=== PATIENT | female | born 1970 | race Caucasian/White ===

== ENCOUNTER 2019-02-02 06:21 | Emergency (ER) | payer OTHER, SELFPAY ==
[2019-02-02 06:25] VITALS: BP 173/102; PULSE 83; RESP 18; TEMP 36.6; O2SAT 100
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
[2019-02-02 07:33] VITALS: BP 161/73; PULSE 84; RESP 18; O2SAT 99
[2019-02-02] MEDS: HYDROMORPHONE 1 MG INJ IM (08:06)
[2019-02-02] MEDS: ONDANSETRON 4 MG ODT SL (08:06)
[2019-02-02 08:47] VITALS: BP 165/87; PULSE 75; RESP 18; O2SAT 97
[2019-02-02] MEDS: diazePAM 5 MG TABLET PO (08:58)
[2019-02-02] MEDS: KETOROLAC 60 MG/2 ML VIAL 30 MG IM (08:58)
[2019-02-02 09:45] VITALS: BP 151/97; PULSE 76; RESP 16; O2SAT 99
== END 2019-02-02 10:01 | disposition home or self-care (01) ==
PROVIDERS: Emergency Provider Emergency Medicine; PCP Family Medicine
DX: S16.1XXA Strain of muscle, fascia and tendon at neck level, initial encounter (principal); V43.53XA Car driver injured in collision with pick-up truck in traffic accident, initial encounter
CPT/HCPCS: 72125; 96372; 99283; 99284; J1170; J1885

== ENCOUNTER → 2022-06-28 08:27 | Outpatient (CLI) | payer OTHER, SELFPAY ==
--- NOTE | 2022-06-28 | DI.CT.S_ITS ---
PROCEDURE: CT LUMBAR SPINE WO CON INDICATIONS: Spinal stenosis, lumbar region with neurogenic claudication TECHNIQUE: Noncontrast 3 mm thick sections acquired from the T12 level to the sacrum. Sagittal and coronal reformats were constructed. For radiation dose reduction, the following was used: automated exposure control. COMPARISON: [facility], CT, CT LUMBAR SPINE WO CON, 06/16/2015, 14:09. [facility], CR, XR LUMBAR SPINE 2 OR 3 VIEWS, 03/12/2022, 16:22. FINDINGS: Image quality: Excellent. Bones: There is no visualized fracture or dislocation. No suspicious osseous lesions. Trace retrolisthesis is present at L3 on L4, L4 on L5 and L5 on S1. Minimal disc bulges are present at L2-3, L3-4, L4-5. There is no gross spinal stenosis. unchanged. Minimal to mild left and minimal right foraminal narrowing L3-4, progressive, [id number] left and mild right foraminal narrowing is present at L4-5, unchanged, [id number] bilateral foraminal narrowing, L5-S1, left greater than right, minimally progressive. Mild facet and ligamentum flavum hypertrophy are present. Soft tissues: No retroperitoneal masses or hematomas. Visualized aorta is normal in caliber. IMPRESSION: Multilevel degenerative changes remaining most prominent L5-S1 as described above. Dictated by: Elena Stafford M.D. on 06/28/2022 at 9:59 Approved by: Elena Stafford M.D. on 06/28/2022 at 10:45
== END ==
PROVIDERS: PCP Nurse Practitioner; Referring Provider Orthopaedic Surgery Orthopaedic Surgery of the Spine; Visit Provider Orthopaedic Surgery Orthopaedic Surgery of the Spine
DX: M48.062 Spinal stenosis, lumbar region with neurogenic claudication (principal); M47.817 Spondylosis without myelopathy or radiculopathy, lumbosacral region
CPT/HCPCS: 72131

== ENCOUNTER 2024-04-25 18:52 | Emergency (ER) | payer OTHER, SELFPAY ==
[2024-04-25] VITALS (15 sets, daily range): BP systolic 115–227; BP diastolic 58–119; PULSE 92–125; RESP 12–26; TEMP 36.5; O2SAT 95–100; BMI 33.6
--- NOTE | 2024-04-25 19:07 | DI.RAD.S_ITS ---
PROCEDURE: XR CHEST 1V INDICATIONS: Chest pain TECHNIQUE: One view of the chest was acquired. COMPARISON: None. FINDINGS: Surgical changes and devices: None. Lungs and pleura: Lungs are clear. No pleural effusions or pneumothorax. Mediastinum: Mediastinal contours appear normal. Heart size is normal. Bones and chest wall: No suspicious bony lesions. Overlying soft tissues appear unremarkable. IMPRESSION: No acute cardiopulmonary abnormality is seen. Approved by: Sandra Calhoun M.D.,Ph.D. on 04/25/2024 at 20:32
--- NOTE | 2024-04-25 19:17 | EKG_ITS ---
[facility] [id number] [place] [id number] Test Date: 2024-04-25 Pat Name: Lillian Lew Department: Room: Gender: Female [employer]: RHYS : 1970 Requested By: Order Number: [id number] Reading MD: Measurements Intervals [place] Rate: 117 P: 51 FL: 152 QRS: 36 QRSD: 84 T: 40 QT: 340 QTc: 474 Interpretive Statements Sinus tachycardia Nonspecific ST and T wave abnormality Electronically Signed On 04-26-2024 8:06:03 PST by Manny Vergara MD
[2024-04-25] MEDS: LORazepam 2 MG/ML INJ 1 MG IV (19:18)
[2024-04-25 19:26] LABS: Add Manual Diff / Slide Review NO; Basophils Absolute Auto 0 /uL (0-100); Basophils Percent Auto 0.2 % (0-2); Eosinophils Absolute Auto 0 /uL (0-450); Eosinophils Percent Auto 0.3 % (2-4); Hematocrit 45.1 % (36-46); Hemoglobin 15.2 g/dL (12.0-16.0); Lymphocytes Absolute Auto 1300 /uL (1100-4500); Mean Corpuscular HGB Conc 33.8 % (30-36); Mean Corpuscular Hemoglobin 31.8 PG (26-34); Mean Corpuscular Volume 94.1 fL (80-100); Monocytes Absolute Auto 300 /uL (0-900); Monocytes Percent Auto 1.8 % (3-14); Neutrophils Absolute Auto 14500 /uL (1500-7000); Neutrophils Percent Auto 89.7 % (50-75); Platelet Count 469 X10^3/uL (150-400); Red Blood Cell Count 4.79 X10^6/uL (4.0-5.2); Red Cell Distribution Width 13.2 % (11.6-14.8); White Blood Cell Count 16.2 X10^3/uL (4.5-11.0)
[2024-04-25 19:40] LABS: Alanine Aminotransferase 30 IU/L (<35); Albumin 4.9 g/dL (3.5-5.0); Albumin Globulin Ratio 1.3 (1.0-2.8); Alkaline Phosphatase 92 U/L (38-126); Aspartate Aminotransferase 31 IU/L (14-36); Bilirubin Total 0.8 mg/dL (0.2-1.3); Blood Urea Nitrogen 7 mg/dL (7-17); Calcium 9.8 mg/dL (8.4-10.2); Carbon Dioxide 20 mmol/L (22-32); Chloride 99 mmol/L (98-107); Creatine Kinase 42 U/L (30-135); Estimated Glomerular Filt Rate > 60 mL/min (>60); Globulin 3.9 g/dL (1.7-4.1); Glucose 169 mg/dL (70-100); HEMOLYSIS 48 (0-50); Lipase 56 U/L (23-300); Sodium 133 mmol/L (137-145); Total Protein 8.8 g/dL (6.3-8.2)
[2024-04-25 19:52] LABS: Troponin I < 0.012 ng/mL (0.01-0.034)
[2024-04-25] MEDS: HYDROMORPHONE 1 MG INJ IV (19:55)
--- NOTE | 2024-04-25 20:46 | ED_ITS ---
HPI - General Adult General Chief complaint: Abdominal Pain Stated complaint: chest pain, back pain, poss food poisoning Time Seen by Provider: 04/25/24 19:06 Source: patient Mode of arrival: Ambulatory History of Present Illness HPI narrative: Patient is a 54-year-old female who is here for evaluation of chest pain, back pain, epigastric abdominal pain. She states that the symptoms started after eating lunch this afternoon it have progressively worsened since then. She does have history of reflux disease. Is on omeprazole. No recent travel. No recent antibiotics. No diarrhea. No urinary symptoms. No fevers. No shortness of breath. Related Data Home Medications Medication Instructions Recorded Confirmed buspirone 5 mg tablet mg PO 04/25/24 metoprolol succinate 25 mg capsule mg PO DAILY 04/25/24 sprinkle, ext. release 24 hr omeprazole 40 mg capsule,delayed mg PO DAILY 04/25/24 release Allergies Allergy/AdvReac Type Severity Reaction Status Date / Time No Known Drug Allergies Allergy Verified 04/25/24 19:14 Review of Systems Review of Systems ROS Unobtainable: All systems reviewed & are unremarkable except as noted in HPI and below Patient History Social History Smoking Status: Former smoker Smoking Status: Former smoker alcohol intake frequency: other Substance Use Type: does not use Exam Initial Vital Signs Initial Vital Signs: Vital Signs Temperature 97.7 F 04/25/24 19:11 Pulse Rate 116 H 04/25/24 19:11 Respiratory Rate 26 H 04/25/24 19:11 Blood Pressure 227/102 H 04/25/24 19:11 Pulse Oximetry 98 04/25/24 19:11 Oxygen Delivery Method Room Air 04/25/24 19:11 Const General: cooperative and No ill appearing [facility] Head: normal to inspection and normocephalic Resp Effort & Inspection: normal respiratory effort Auscultation: clear to auscultation bilaterally Cardio Rate: regular rate Rhythm: regular rhythm GI Inspection: normal to inspection and non-distended Palpation: soft and tender (Epigastric) Skin General: no rashes or lesions noted Neuro General: patient alert, patient awake and moves all extremities Extrem General: capillary refill normal Course Orders Ordered: ED Orders 04/25/24 19:07 XR chest 1V Stat EKG-12 Lead Stat 04/25/24 19:11 Complete Blood Count AUTO DIFF Stat Comprehensive Metabolic Panel Stat Lipase Stat Troponin & CK Cardiac Panel Stat 04/25/24 20:46 CT abdomen pelvis w con Stat Discontinued Medications Al Hydrox/Mg Hydrox/Simethicone 20 ml/ Lidocaine HCl 15 ml 0 ml PO NOW ONE Stop: 04/25/24 20:47 Last Admin: 04/25/24 21:03 Dose: 45 ml Documented By: LUDIVINA Hydromorphone HCl (Hydromorphone 1 Mg Inj) 1 mg IV NOW ONE Stop: 04/25/24 19:49 Last Admin: 04/25/24 19:55 Dose: 1 mg Documented By: WHITNEY Lorazepam (Lorazepam 2 Mg/Ml Inj) 1 mg IV NOW ONE Stop: 04/25/24 19:08 Last Admin: 04/25/24 19:18 Dose: 1 mg Documented By: LUDIVINA Ondansetron HCl (Ondansetron 4 Mg Odt Prepack) 1 bottle MISC DIRECTED ONE Stop: 04/25/24 22:02 Last Admin: 04/25/24 22:12 Dose: 1 bottle Documented By: LUDIVINA Pantoprazole Sodium (Pantoprazole 40 Mg Vial) 40 mg IV NOW ONE Stop: 04/25/24 20:47 Last Admin: 04/25/24 21:03 Dose: 40 mg Documented By: LUDIVINA Vital Signs Vital signs: Vital Signs - 8 hr 04/25/24 19:11 04/25/24 19:12 04/25/24 19:30 Temperature 97.7 F Pulse Rate 116 H 119 H 112 H Respiratory Rate 26 H Blood Pressure 227/102 H Pulse Oximetry 98 100 99 Oxygen Delivery Method Room Air 04/25/24 19:30 04/25/24 19:45 04/25/24 19:45 Temperature Pulse Rate 115 H Respiratory Rate 26 H Blood Pressure 208/88 H 207/119 H Pulse Oximetry 100 Oxygen Delivery Method 04/25/24 19:57 04/25/24 19:57 04/25/24 19:58 Temperature Pulse Rate 125 H 120 H Respiratory Rate 26 H 19 Blood Pressure 179/111 H Pulse Oximetry 100 98 Oxygen Delivery Method 04/25/24 19:58 04/25/24 20:00 04/25/24 20:00 Temperature Pulse Rate 113 H Respiratory Rate 24 Blood Pressure 183/87 H 181/85 H Pulse Oximetry Oxygen Delivery Method 04/25/24 20:05 04/25/24 20:05 04/25/24 20:30 Temperature Pulse Rate 103 H Respiratory Rate 16 Blood Pressure 148/68 H 117/58 L Pulse Oximetry 96 Oxygen Delivery Method 04/25/24 20:30 04/25/24 20:37 04/25/24 20:37 Temperature Pulse Rate 94 H 97 H Respiratory Rate 12 17 Blood Pressure 118/58 L Pulse Oximetry 98 96 Oxygen Delivery Method 04/25/24 21:04 04/25/24 21:08 04/25/24 21:08 Temperature Pulse Rate 103 H 101 H Respiratory Rate 18 13 Blood Pressure 128/63 Pulse Oximetry 97 98 Oxygen Delivery Method 04/25/24 21:30 04/25/24 21:30 04/25/24 21:53 Temperature Pulse Rate 92 H Respiratory Rate 13 Blood Pressure 115/62 128/70 Pulse Oximetry 95 Oxygen Delivery Method 04/25/24 21:53 04/25/24 22:00 04/25/24 22:00 Temperature Pulse Rate 105 H 97 H Respiratory Rate 21 12 Blood Pressure 124/69 Pulse Oximetry 95 95 Oxygen Delivery Method Room Air Medical Decision Making Lab Data Lab results reviewed: Yes I reviewed the patient's lab results. 04/25/24 19:11 04/25/24 19:11 Labs: Lab Results 04/25/24 Range/Units 19:11 WBC 16.2 H (4.5-11.0) X10^3/uL RBC 4.79 (4.0-5.2) X10^6/uL Hgb 15.2 (12.0-16.0) g/dL Hct 45.1 (36-46) % MCV 94.1 (80-100) fL MCH 31.8 (26-34) PG MCHC 33.8 (30-36) % RDW 13.2 (11.6-14.8) % Plt Count 469 H (150-400) X10^3/uL Neut % (Auto) 89.7 H (50-75) % Lymph % (Auto) 8.0 L (25-40) % [place] % (Auto) 1.8 L (3-14) % Eos % (Auto) 0.3 L (2-4) % Baso % (Auto) 0.2 (0-2) % Neut # (Auto) 55276 H (0344-6360) /uL Lymph # (Auto) 1300 (2719-3694) /uL [place] # (Auto) 300 (0-900) /uL Eos # (Auto) 0 (0-450) /uL Baso # (Auto) 0 (0-100) /uL Sodium 133 L (137-145) mmol/L Potassium 4.0 (3.4-5.1) mmol/L Chloride 99 (98-107) mmol/L Carbon Dioxide 20 L (22-32) mmol/L BUN 7 (7-17) mg/dL Creatinine 0.54 (0.52-1.04) mg/dL Estimated GFR > 60 (>60) mL/min BUN/Creatinine Ratio 13.0 (6-22) Glucose 169 H (70-100) mg/dL Calcium 9.8 (8.4-10.2) mg/dL Total Bilirubin 0.8 (0.2-1.3) mg/dL AST 31 (14-36) IU/L ALT 30 (<35) IU/L Alkaline Phosphatase 92 (38-126) U/L Total Creatine Kinase 42 (30-135) U/L Troponin I < 0.012 (0.01-0.034) ng/mL Total Protein 8.8 H (6.3-8.2) g/dL Albumin 4.9 (3.5-5.0) g/dL Globulin 3.9 (1.7-4.1) g/dL Albumin/Globulin Ratio 1.3 (1.0-2.8) Lipase 56 (23-300) U/L Urine Dip Bedside Urine Glucose Negative Bedside Urine Bilirubin - Negative Bedside Urine Ketone +++ 80 Urine Specific [place] 1.010 Bedside Urine Occult Blood +/- Bedside Urine pH 8.0 Bedside Urine Protein - Negative Bedside Urine Urobilinogen - Negative Bedside Urine Nitrite - Negative Bedside Urine Leukocytes - Negative Esterase Point of care testing: Urine Dip Bedside Urine Glucose Negative Bedside Urine Bilirubin - Negative Bedside Urine Ketone +++ 80 Urine Specific [place] 1.010 Bedside Urine Occult Blood +/- Bedside Urine pH 8.0 Bedside Urine Protein - Negative Bedside Urine Urobilinogen - Negative Bedside Urine Nitrite - Negative Bedside Urine Leukocytes - Negative Esterase Imaging Data Chest x-ray: Radiologist's Impression: PROCEDURE: XR CHEST 1V INDICATIONS: Chest pain TECHNIQUE: One view of the chest was acquired. COMPARISON: None. FINDINGS: Surgical changes and devices: None. Lungs and pleura: Lungs are clear. No pleural effusions or pneumothorax. Mediastinum: Mediastinal contours appear normal. Heart size is normal. Bones and chest wall: No suspicious bony lesions. Overlying soft tissues appear unremarkable. IMPRESSION: No acute cardiopulmonary abnormality is seen. CT scan - abdomen/pelvis: Radiologist's Impression: PROCEDURE: CT ABDOMEN PELVIS W CON INDICATIONS: Upper abdominal pain with vomiting TECHNIQUE: After the administration of intravenous contrast, axial sections acquired from the lung bases to the pubic symphysis. Coronal and sagittal reformats were performed. For radiation dose reduction, the following was used: automated exposure control, adjustment of mA and/or kV according to patient size. COMPARISON: None. FINDINGS: Image quality: Diagnostic Lower chest: Basal atelectasis. Small hiatal hernia. Normal heart size Liver: Unremarkable Gallbladder and biliary system: Unremarkable, nondilated Pancreas: No ductal dilation Spleen: Nonenlarged Adrenals: No discrete nodules Kidneys: No solid mass. No hydronephrosis Vessels and lymph nodes: The main portal vein is patent. No abdominal aortic aneurysm or pathologic lymph nodes by size criteria. Bowel and peritoneum: No evidence of small bowel obstruction. No pathologic ascites. Body wall: Tiny fat containing umbilical hernia Pelvis: Bladder is unremarkable. Suspected uterine fibroids. Adnexal structures are unremarkable. Reproductive organs could be better evaluated ultrasound if there is clinical concern. Bones: There are degenerative changes, no acute or suspicious osseous finding. IMPRESSION: Mildly thickened distal esophageal wall with small hiatal hernia, probably esophagitis. Endoscopy could better evaluate if necessary. No small bowel obstruction. Other findings as above. ECG Data Attestation: I personally reviewed and interpreted this ECG as follows: Interpretation: Sinus tachycardia Ventricular rate of 113 has a normal axis Normal QRS Normal QTC No ST T wave changes MDM Narrative Medical decision making narrative: After medications here in the emergency department her symptoms seemed to almost completely resolved. CT scan shows thickening of the distal esophagus. The patient has a history of reflux disease. Her symptoms did start after eating lunch today in her symptoms did seem to improve after treatment for GI sources here in the ER. I have low suspicion for ACS. Low suspicion this is a gallbladder issue. No signs of bowel obstruction. No indication for antibiotics despite her leukocytosis which I suspect is because of stress reaction from the vomiting. Will discharge home with nausea medication. Recommended that in addition to proton pump inhibitor that she take a liquid antacid to coat the stomach over the next couple days. She was given return precautions and follow-up instructions. She expressed understanding and agreement with plan. Discharge Plan Departure Patient Disposition: Home Clinical Impression: Abdominal pain Instructions: DI for Abdominal Pain-Adult Activity Restrictions/Additional Instructions: I do recommend that you continue to take all of your medications as directed and for the next couple days you add a liquid antacid such as Maalox to your medication regimen prior to meals. Recommend a bland diet for the next couple days. Return to the emergency department for new symptoms Prescriptions: No Action buspirone 5 mg Tablet PO omeprazole 40 mg Capsule,Delayed Release(Dr/Ec) PO DAILY metoprolol succinate 25 mg Capsule,Sprinkle,Er 24hr PO DAILY Referrals: *Temp,ED* [Primary Care Provider] - Stand Alone Forms: Patient Portal/API/Survey
[2024-04-25] MEDS: MAG HYDROX/ALUMINUM/SIMETH SUS 20 ML, LIDOCAINE VISCOUS 2% 15 ML PO (21:03)
[2024-04-25] MEDS: PANTOPRAZOLE 40 MG VIAL IV (21:03)
[2024-04-25] MEDS: ONDANSETRON 4 MG ODT PREPACK 1 BOTTLE MISC (22:12)
== END 2024-04-25 22:18 | disposition home or self-care (01) ==
PROVIDERS: Emergency Provider Emergency Medicine
DX: R10.9 Unspecified abdominal pain (principal); R07.9 Chest pain, unspecified; R00.0 Tachycardia, unspecified; R11.2 Nausea with vomiting, unspecified
CPT/HCPCS: 36415; 71045; 74177; 80053; 81003; 82550; 83690; 84484; 85025; 93005; 93010; 96374; 96375; 99284; 99285; J1171; J2060; J2470; Q9967